=== PATIENT | female | born 2005 | race Caucasian/White ===

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

== ENCOUNTER 2025-08-05 09:35 | Outpatient (CLI) | payer BC, SELFPAY | END 2025-08-05 09:36 | disposition home or self-care (01) | LOC: NFLDREF 08-06 12:31 | PROVIDERS: PCP Physician Assistant Medical; Referring Provider Physician Assistant Medical; Visit Provider Physician Assistant Medical | DX: R51.9 Headache, unspecified (principal) | CPT/HCPCS: 80053; 82306; 82728; 84443 ==

== ENCOUNTER 2025-08-13 07:00 | Outpatient (CLI) | payer BC, SELFPAY ==
--- NOTE | 2025-08-13 07:15 | CRLHL7_ITS ---
For Patients: As a result of the Century Cures Act, medical imaging exams and procedure reports are released immediately into your electronic medical record. You may view this report before your referring provider. If you have questions, please contact your health care provider. Indication: Headache Technique: Multiplanar, multisequence MRI of the brain obtained without contrast. Comparison: None. Findings: The ventricles and cortical sulci are age-appropriate in size and configuration. No midline shift or mass effect. No acute intracranial hemorrhage or abnormal extra-axial fluid collection. No evidence of acute/subacute ischemia. White matter signal appears within normal limits. Midline structures are unremarkable. The major expected intracranial flow voids are visualized. Included bone marrow signal is unremarkable. No suspicious findings in the regional soft tissues. Paranasal sinuses and mastoid air cells have a normal signal. Visualized orbits are unremarkable. Impression: 1. Unremarkable MRI brain. No evidence of acute intracranial abnormality. Dictated by Sweta David MD @ 08/13/2025 3:15:02 PM (Electronically Signed)
== END 2025-08-13 07:01 | disposition home or self-care (01) ==
LOC: MRI 07:01
PROVIDERS: PCP Physician Assistant Medical; Visit Provider Physician Assistant Medical
DX: R51.9 Headache, unspecified (principal)
CPT/HCPCS: 70551

== ENCOUNTER 2025-09-02 10:26 | Outpatient (CLI) | payer BC, SELFPAY ==
--- NOTE | 2025-09-02 10:45 | CRLHL7_ITS ---
For Patients: As a result of the Century Cures Act, medical imaging exams and procedure reports are released immediately into your electronic medical record. You may view this report before your referring provider. If you have questions, please contact your health care provider. INDICATION: menorrhagia, taking control for 2 years COMPARISON: None. TECHNIQUE: 2D farrar-scale and color Doppler images were acquired of the pelvis using a transabdominal and transvaginal approach. Transvaginal imaging performed to better visualize the endometrial stripe and ovaries. FINDINGS: Sonographic images demonstrate a normal size and smooth outer contour of the uterus. Uterus measures 7.0 cm in length by 4.6 cm in AP diameter by 5.4 cm in transverse dimension. The myometrium has a normal uniform echotexture. The endometrial lining measures 8.9 mm in composite thickness. The right ovary measures 3.6 x 1.2 x 2.2 cm in size and the left ovary measures 3.1 x 1.2 x 1.7 cm. The ovaries demonstrate normal arterial and venous blood flow on color Doppler analysis. There are no suspicious fluid collections within the cul-de-sac. Simple left paraovarian cyst measures 13 x 10 x 11 millimeters. IMPRESSION: Endometrium measures 8.9 millimeters. Endometrium is mildly indistinct. Dictated by Julito Donohue MD @ 09/02/2025 11:51:58 AM (Electronically Signed)
== END 2025-09-02 10:27 | disposition home or self-care (01) ==
LOC: US 10:26
PROVIDERS: PCP Physician Assistant Medical; Visit Provider Physician Assistant Medical
DX: N92.0 Excessive and frequent menstruation with regular cycle (principal); R93.89 Abnormal findings on diagnostic imaging of other specified body structures
CPT/HCPCS: 76830; 76856